=== PATIENT | female | born 1950 | race Caucasian/White ===

== ENCOUNTER 2018-12-30 11:03 | Day surgery (SDC) | payer OTHER ==
[2018-12-20 12:35] VITALS: BMI 23.4
--- NOTE | 2018-12-30 07:29 | HP ---
History & Physical Update - History History: No Change - Physical Physical: No Change - Assessment Assessment: No Change - Plan Plan: No Change (Initial H&P by her PCP is complete/accurate and UTD. No new comlaints or medications.)
--- NOTE | 2018-12-30 11:02 | OP ---
Operative Note - Note: Operative Date: 12/30/18 Pre-Operative Diagnosis: Cervical Stenosis with bilat upper extremity radiculopathy & myelopathy Operation: ACDF C3/4, C4/5; allograft implant x 2 ; neuromonitoring Post-Operative Diagnosis: Same as Pre-op Surgeon: Wilmer Frank [facility] Facilities Section Director: Rashel Davidson Anesthesiologist/COAL HAULER OPERATOR: Paco Armstrong Anesthesia: General Specimens Removed: C3/4, C4/5 discs Estimated Blood Loss (mls): 5 Fluid Volume Replaced (mls): 900 Operative Report Dictated: Yes
[~2018-12-30 11:03] MED LIST: BUPIVACAINE LIPOSOME/PF (EXPAREL) 266 MG/20 ML VIAL ONE; CEFAZOLIN 1 GM in DEXTROSE 5%-WATER - 100 ML IVPB ONE; DEXAMETHASONE SOD PHOSPHATE 4 MG/1 ML VIAL ONE; GUM MASTIC/STORAX/MSAL/ALCOHOL 1 DRP DROPSBTL MC ONE; LIDOCAINE 1%/EPI 1:100000 (20 ML MULTI DOSE VIAL) INF ONE; LIDOCAINE 1%/EPI 1:100000 (20 ML MULTI DOSE VIAL) ONE; MIDAZOLAM HCL 2 MG/2 ML SINGLE DOSE VIAL ONE; NEOSTIGMINE METHYLSULFATE 0.5 MG/ML - 10 ML MDV ONE; ONDANSETRON 4 MG/2 ML VIAL IVPUSH PRN; ONDANSETRON 4 MG/2 ML VIAL ONE; PROPOFOL 20 ML ONE; ROCURONIUM BROMIDE 50 MG/5 ML SYRINGE ONE; SUCCINYLCHOLINE CHLORIDE 200 MG/10 ML SYRINGE ONE; ceFAZolin SODIUM 1 GM VIAL IVPB ONE; ePHEDrine SULFATE 50 MG/1 ML AMPULE ONE; fentaNYL CITRATE 250 MCG/5 ML VIAL ONE; morphine SULFATE 4 MG/ML VIAL IVPUSH PRN; oxyCODONE HCL 10 MG SUSTAINED ACTING TABLET ONE; oxyCODONE HCL 10 MG SUSTAINED ACTING TABLET PO STA; oxyCODONE HCL 5 MG TABLET PO PRN
--- NOTE | 2018-12-30 11:03 | SURG ---
Surgery Facility Designer Note Facility Designer: Rashel Davidson PA-C Date of Service: 12/30/18 Diagnosis: Cervical Stenosis with bilat upper extremity radiculopathy & myelopathy Procedure: Anterior Cervical Discectomy Fusion C3/4, C4/5; allograft implant x 2; neuromonitoring I was present for the entirety of the operative procedure. For further detail, please refer to operative report. Visit type - Case Type Case Type: Scheduled - New patient This patient is new to me today: Yes Date on this admission: 12/30/18
[2018-12-30] MEDS ORDERED: PATIENT'S OWN MEDICATION (NON-FORMULARY) (Fluticasone Propionate [Flovent Diskus] 50 MCG) IH PRN (11:06)
--- NOTE | 2018-12-30 12:05 | OP ---
DATE OF OPERATION: 12/30/2018 PREOPERATIVE DIAGNOSIS: Cervical stenosis C3-4, C4-5. POSTOPERATIVE DIAGNOSIS: Cervical stenosis C3-4, C4-5. PROCEDURES PERFORMED: 1. Anterior cervical diskectomy and fusion C3-4, anterior cervical diskectomy and fusion C4-5. 2. Placement of instrumentation C3-C5. SURGEON: Wilmer Frank MD PACKAGING MECHANIC: MADISON Watts ESTIMATED BLOOD LOSS: 50 mL. INTRAVENOUS FLUIDS: Per anesthesia. ANESTHESIA: Spinal/MCP block. COMPLICATIONS: There were none. DISPOSITION: Patient brought to PACU in stable condition. INDICATION FOR SURGERY: Patient is a 68-year-old female who has been suffering from pain from her neck down her arms. X-rays and MRI were completed, which noted that she has cervical stenosis due to herniated disk. She had gone through an exhaustive course of treatment for this, which included medications, physical therapy as well as injections. Unfortunately, her pain continued to persist despite all this. At this point, risks, benefits, alternatives were discussed, and the patient consented to surgery. DESCRIPTION OF PROCEDURE: Patient was brought to the operating room by anesthesia staff. After appropriate patient identification was performed, general anesthesia was given. MCP block was given. Her arms were tucked in at the side. A shoulder roll was placed underneath her shoulder to extend her neck to the point that she could tolerate in the preoperative holding area. A needle was taped onto her neck to kevin off the C3-4 level. X-ray was taken to confirm this was correct. Needle was removed, and 10 mL of lidocaine with epinephrine was injected into her neck at this time. Her neck was prepped and draped in a sterile fashion. At this point, a time-out was completed, and a 2-inch incision was made on the left side of her neck. Dissection was carried down to the platysma. The platysma was cut in line with the skin incision. Next, the interval between the sternocleidomastoid and strap muscles was developed. Next, the interval between the trachea, esophagus, and carotid sheath was developed. Peanuts were used to elevate off the prevertebral fascia. A needle was placed into the C4-5 disk. X-ray was taken to confirm this was correct. Needle was removed, and the platysma muscles were elevated off. Retractor blades were placed in. A Dugger pin was placed into body of C3 and C5. A knife was used to incise the disk, and distraction was applied. At this point, microscope was brought in. Using a series of pituitaries, Kerrisons, and curettes, a diskectomy was completed at C3-4 and C4-5. Endplates were decorticated at this time. A cage filled with bone graft was placed into C3-4 and C4-5. Screws were placed into the body of C3, C4, and C5. Dugger pins were removed. AP and lateral x-rays confirmed the instrumentation to be in good position. Final tightening was performed. The platysma was closed with 2-0 Vicryl suture. Skin was closed with 3-0 Monocryl suture. Dermabond was applied. Steri-Strips were applied. A sterile dressing was applied. Patient placed supine on the OR bed, brought to the PACU in stable condition. Awilda [id number]
[2018-12-30] MEDS ORDERED: GABAPENTIN 300 MG CAPSULE (FP) ONE (12:08)
[2018-12-30] MEDS ORDERED: ONDANSETRON 4 MG/2 ML VIAL IVPUSH PRN (12:43)
[2018-12-30] MEDS ORDERED: PROMETHAZINE HCL 25 MG/1 ML VIAL IVPUSH PRN (12:43)
[2018-12-30] MEDS ORDERED: oxyCODONE HCL 5 MG TABLET PO PRN ×2 (12:43)
[2018-12-30] MEDS: LACTATED RINGERS SOLUTION 1,000 ML IV SCH (13:00)
[2018-12-30] MEDS: CEFAZOLIN 1 GM/D5W 1 GM/50 ML BAG IVPB SCH (17:02)
[2018-12-30] MEDS: DEXAMETHASONE SOD PHOSPHATE 4 MG/1 ML VIAL IVPUSH SCH (17:02)
[2018-12-30] MEDS: oxyCODONE HCL 5 MG TABLET PO PRN (20:57)
[2018-12-30] MEDS: GABAPENTIN 100 MG CAPSULE (FP) PO SCH (20:58)
[2018-12-31] MEDS: DEXAMETHASONE SOD PHOSPHATE 4 MG/1 ML VIAL IVPUSH SCH ×2 (01:53→09:20)
[2018-12-31] MEDS: CEFAZOLIN 1 GM/D5W 1 GM/50 ML BAG IVPB SCH (01:53)
--- NOTE | 2018-12-31 06:59 | PN ---
Progress Note (short form) - Note Progress Note: POD #1 s/p ACDF C3/4, C4/5; allograft implant x 2 ; neuromonitoring Alert. Per RN notes, last night patient c/o "chest tightness". The RN administered the patient's own Flovent inhaler. Chest tightness resolved shortly thereafter. At this time, she is only c/o mild incisional tenderness and mild ROBERTSON. Pain is adequately managed with medications as ordered. She is wearing her c-collar as instructed. Voiding spontaneously. OOB and ambulating unassisted. Denies n/v/f/c, CP, palpitations, SOB or BROWN. Denies upper extremity numbness/ tingling. Last Vital Signs Temp Pulse Resp BP Pulse Ox 97.9 F 69 16 119/51 L 98 12/31/18 04:00 12/31/18 04:00 12/31/18 04:00 12/31/18 04:00 12/31/18 04:00 Gen: nad, speaking full sentences without difficulty Neck: dressing c/d/i. mild periwound soft tissue ecchymosis. no hematoma. Neuro: GMNVI bilat all extremities <Rashel Davidson P - Last Filed: 12/31/18 07:05> - Note Progress Note: Patient is comfortable Decreased arm pain D/C Planning <Wilmer Frank - Last Filed: 12/31/18 13:13> Problem List - Problems (1) Cervical spinal stenosis Assessment/Plan: POD #1 s/p C3-C5 ACDF Cont to wear your c-collar 23/24 hours/day may remove while eating or bathing Incentive spirometer Fioricet x1 ordered Cont OOB and ambulate f/u Cervical Xray DC home today Above plan discussed with Dr. Frank and agrees Code(s): M48.02 - SPINAL STENOSIS, CERVICAL REGION <Rashel Davidson P - Last Filed: 12/31/18 07:05>
[2018-12-31 07:03] VITALS: PULSE 72
[2018-12-31] MEDS ORDERED: ACETAMINOPHEN/CAFFEINE/BUTALBITAL 1 TAB PO ONE (07:15)
[2018-12-31] MEDS ORDERED: LEVOTHYROXINE NA 75 MCG TABLET (FP) PO SCH (07:30)
--- NOTE | 2018-12-31 08:51 | PN ---
Progress Note, Physician Chief Complaint: s/p ACDF under general anesthesia History of Present Illness: post op day one peripheral nerve block for post op pain control - Current Medication List Current Medications: Active Medications Atenolol (Tenormin -) 25 mg PO DAILY [facility] Calcium Carbonate (Os-Jc 500mg -) 1,000 mg PO DAILY [facility] Cholecalciferol (Vitamin D3 -) 2,000 unit PO DAILY [facility] Dexamethasone Sodium Phosphate (Decadron Injection -) 4 mg IVPUSH Q8H-IV [facility] Last Admin: 12/31/18 01:53 Dose: 4 mg Gabapentin (Neurontin -) 100 mg PO Q12H [facility] Last Admin: 12/30/18 20:58 Dose: 100 mg Lactated Ringer's (Lactated Ringers Solution) 1,000 mls @ 125 mls/hr IV ASDIR [facility] Last Admin: 12/30/18 13:00 Dose: 125 mls/hr Lactobacillus Acidophilus (Bacid -) 1 tab PO DAILY [facility] Levothyroxine Sodium (Synthroid -) 75 mcg PO DAILY@0730 [facility] Last Admin: 12/31/18 07:00 Dose: 75 mcg Morphine Sulfate (Morphine Sulfate) 4 mg IVPUSH Q4H PRN PRN Reason: PAIN LEVEL 1-5 Multivitamins/Minerals/Vitamin C (Tab-A-Vit -) 1 tab PO DAILY [facility] Non-Formulary Medication (Cyanocobalamin (Vitamin B-12) [Vitamin B12]) 5,000 mcg PO DAILY [facility] Non-Formulary Medication (Fluticasone Propionate [Flovent Diskus]) 50 mcg IH BID PRN PRN Reason: ASTHMA Non-Formulary Medication (Iron [Iron]) 65 mg PO DAILY [facility] Non-Formulary Medication (Lactase [Lactaid Fast Act]) 9,000 unit PO DAILY [facility] Ondansetron HCl (Zofran Injection) 4 mg IVPUSH Q6H PRN PRN Reason: NAUSEA AND/OR VOMITING Last Admin: 12/30/18 11:35 Dose: 4 mg Oxycodone HCl (Roxicodone -) 5 mg PO Q4H PRN PRN Reason: PAIN LEVEL 1 - 3 Last Admin: 12/30/18 20:57 Dose: 5 mg Oxycodone HCl (Roxicodone -) 10 mg PO Q4H PRN PRN Reason: PAIN LEVEL 6-10 Ranitidine HCl (Zantac -) 150 mg PO DAILY [facility] - Objective Vital Signs: Vital Signs Temperature 97.9 F 12/31/18 04:00 Pulse Rate 72 12/31/18 07:02 Respiratory Rate 16 12/31/18 07:58 Blood Pressure 125/51 L 12/31/18 07:02 O2 Sat by Pulse Oximetry (%) 99 12/31/18 07:58 Constitutional: Yes: Well Nourished Cardiovascular: Yes: WNL Respiratory: Yes: WNL Gastrointestinal: Yes: WNL Assessment/Plan Complained of throat pain but better now, otherwise no anesthetic complications or issues. Will sign off case at this time
[2018-12-31] MEDS: GABAPENTIN 100 MG CAPSULE (FP) PO SCH (09:20)
[2018-12-31] MEDS: oxyCODONE HCL 5 MG TABLET PO PRN (09:21)
[2018-12-31] MEDS ORDERED: PATIENT'S OWN MEDICATION (NON-FORMULARY) (Lactobacillus Acidophilus [Probiotic] 1 EACH) PO SCH (10:00)
[2018-12-31] MEDS ORDERED: LACTOBACILLUS ACIDOPHILUS 1 TABLET PO SCH (10:00)
[2018-12-31] MEDS ORDERED: CALCIUM (OYSTER SHELL) 500 MG TABLET (FP) PO SCH (10:00)
[2018-12-31] MEDS ORDERED: PATIENT'S OWN MEDICATION (NON-FORMULARY) (Cyanocobalamin (Vitamin B-12) [Vitamin B12] 5,00 PO SCH (10:00)
[2018-12-31] MEDS ORDERED: IRON 65 MG PO SCH (10:00)
[2018-12-31] MEDS ORDERED: LACTASE 9000 UNIT PO SCH (10:00)
[2018-12-31] MEDS ORDERED: ATENOLOL 25 MG TABLET (FP) PO SCH (10:00)
[2018-12-31] MEDS ORDERED: RANITIDINE HCL 150 MG TABLET (FP) PO SCH (10:00)
[2018-12-31] MEDS ORDERED: MULTIVITAMINS (DAILY MVI) TABLET (FP) PO SCH (10:00)
[2018-12-31] MEDS ORDERED: CHOLECALCIFEROL (VIT D3) 1,000 UNIT (25 MCG) TABLET PO SCH (10:00)
[2018-12-31] MEDS: LACTATED RINGERS SOLUTION 1,000 ML IV SCH (11:00)
[2018-12-31 14:06] VITALS: BP 145/47; TEMP 98
[2018-12-31] MEDS ORDERED: ACETAMINOPHEN 325 MG TABLET (FP) PO PRN ×2 (16:01→16:08)
--- NOTE | 2019-01-06 12:58 | PATH ---
Surgical Pathology Report Patient Name: LUCAS JOHNSON Med. Rec. #: [id number] /Age/Gender: 1950 (Age: 68) / F Account: [id number] Location: [facility] Taken: 12/31/2018 Received: 12/31/2018 Reported: 01/06/2019 Physicians: Wilmer Frank M.D. Specimen(s) Received DISC C3-C5 Clinical History Cervical stenosis Final Diagnosis CERVICAL DISC C3-C5, DISCECTOMY: CARTILAGE WITH DEGENERATIVE CHANGES. BONE WITH NO PATHOLOGIC FINDINGS. Electronically Signed Jyoti Maldonado M.D. Gross Description Received in formalin, labeled "cervical disc C3-C5, is a 2.3 x 1.4 x 0.2 cm aggregate of light [place] fibrocartilaginous tissue. Customer Pricing Manager tissue is submitted in one cassette. AE/01/02/2019 ebram/01/02/2019
== END 2018-12-31 16:43 | disposition home or self-care (01) ==
LOC: FASU 11:03 → FM/S 11:03 → FASUSAT 11:03
PROVIDERS: ATTEND Orthopaedic Surgery Orthopaedic Surgery of the Spine
PROC: 0RG10A0 Fusion of Cervical Vertebral Joint with Interbody Fusion Device, Anterior Approach, Anterior Column, Open Approach (ICD-10-PCS; 2018-12-30)
PROC: 0RG10K0 Fusion of Cervical Vertebral Joint with Nonautologous Tissue Substitute, Anterior Approach, Anterior Column, Open Approach (ICD-10-PCS; 2018-12-30)
PROC: 0RB30ZZ Excision of Cervical Vertebral Disc, Open Approach (ICD-10-PCS; principal; 2018-12-30 09:44)
DX: M48.02 Spinal stenosis, cervical region (principal)
CPT/HCPCS: 22551; 22552; 22845; 22853; C1889; 72050-TC-FY; 76000-TC-FY; 88304-TC; 94760; 97116-GP; 97162-GP